=== PATIENT | female | born 1980 | race Caucasian/White ===

== ENCOUNTER 2018-08-20 20:57 | Emergency (ER) | END 2018-08-21 00:39 | disposition home or self-care (01) ==

== ENCOUNTER 2018-10-11 11:44 | Emergency (ER) | payer OTHER ==
[~2018-10-11] VITALS: Ht 162.6 cm; Wt 79.1 kg
[~2018-10-11 11:44] MED LIST: HC30CR25 TOP; METR70GE15 VAG; NAPR-985 PO
[2018-10-11 11:46] VITALS: Ht 162.6 cm; Wt 79.1 kg
--- NOTE | 2018-10-11 12:57 | ERD ---
ER Documentation Chief Complaint Chief Complaint vaginal pain , recently treated for yeast infection HPI 38 year old female, with no past medical history, who presents for a 1 month history of external vaginal pain and itching, worse yesterday and today, described as moderate, non-radiating, worse with sitting and walking, associated with mild white vaginal discharge and suprapubic pain. Patient reports that she has been seeing her PCP for this and has been treated with multiple antifungal creams, but without relief of her symptoms. Otherwise, patient denies any fev ers, chills, dysuria, hematuria, flank pain, nausea, or vomiting. ROS All systems reviewed and are negative except as per history of present illness. Medications Home Meds Active Scripts Nystatin-Triamcinolone* (Nystatin-Triamcinolone* Cream) 15 Gm Cream.gm., 1 APPLIC TOP BID for 7 Days, TUB Prov:MIRIAN SALEEM MD 10/11/18 Fluconazole* (Diflucan*) 150 Mg Tablet, 150 MG PO ONCE, #1 TAB Prov:MIRIAN SALEEM MD 10/11/18 Metronidazole (Metronidazole Gel) 0.75% - 70GM Gel.w.appl, 1 APPFUL VAGINAL QHS for 7 Days, #1 TUB Prov:MIRIAN SALEEM MD 10/11/18 Hydrocortisone* Topical (Hydrocortisone* Topical) 2.5%-28.3 Gm Cream..g., 1 APPLIC TOP BID for 5 Days, #1 TUB Prov:MIRIAN SALEEM MD 08/21/18 Metronidazole* (Metrogel* Vaginal) 0.75% -70 Gram Gel.w.appl, 1 APPFUL VAG HS for 7 Days, #1 TUB Prov:MIRIAN SALEEM MD 08/21/18 Naproxen* (Naprosyn*) 500 Mg Tablet, 500 MG PO BID PRN for PAIN AND/OR INFLAMMATION, #30 TAB take with food Prov:ENZO JEFF PA-C 05/04/16 Allergies Allergies: Coded Allergies: No Known Drug Allergies (Verified Allergy, Unknown, 05/04/16) PMhx/Soc History of Surgery: Yes (Thymomectomy,Sternotomy) Anesthesia Reaction: No Hx Neurological Disorder: Yes (Myasthenia Gravis (Resolved)) Hx Respiratory Disorders: No Hx Cardiac Disorders: No Hx Psychiatric Problems: No Hx Miscellaneous Medical Probl: Yes (Thymoma,UTIs) Hx Alcohol Use: No Hx Substance Use: No Hx Tobacco Use: No Smoking Status: Never smoker FmHx Family History: No diabetes Physical Exam Vitals Vital Signs Date Temp Pulse Resp B/P (MAP) Pulse Ox O2 O2 Flow FiO2 Time Delivery Rate 10/11/18 98.4 71 18 128/68 99 Room Air 14:45 (88) 10/11/18 98.2 79 16 135/72 97 11:46 (93) Physical Exam Const: No acute distress Head: Atraumatic Eyes: Normal Conjunctiva ENT: Normal External Ears, Nose and Mouth. Neck: Full range of motion. No meningismus. Resp: Clear to auscultation bilaterally Cardio: Regular rate and rhythm, no murmurs Abd: Soft, mild suprapubic tenderness to palpation, non distended. Normal bowel sounds : External genitalia with significant erythema, yellowish, malodorous vaginal discharge noticed. No cervical motion tenderness. Skin: No petechiae or rashes Back: No midline or flank tenderness Ext: No cyanosis, or edema Neur: Awake and alert Psych: Normal Mood and Affect Results 24 hrs Laboratory Tests Test 10/11/18 13:24 10/11/18 13:25 Bedside Urine pH (LAB) 5.5 Bedside Urine Protein (LAB) Negative Bedside Urine Glucose (UA) Negative Bedside Urine Ketones (LAB) Negative Bedside Urine Blood Trace-lysed Bedside Urine Nitrite (LAB) Negative Bedside Urine Leukocyte Esterase (L Trace POC Beta HCG, Qualitative NEGATIVE Name: TIP LANDA Age/Sex: 38/F Attend Dr: MIRIAN SALEEM Acct: [id number] MR# : [id number] : 1980 Location: [facility] Admit: 10/11/18 Specimen: [id number] Status: Complete Kwame: 10/11/18 Rcvd: 10/11/18 Source: VAGINAL DI Sp Descrip: --- Procedure Result Microbiology WET MOUNT Final WHITE BLOOD CELLS 2+ BACTERIA 2+ EPITHELIAL CELLS 1+ CLUE CELLS NO CLUE CELLS SEEN MOTILE TRICHOMONAS NO MOTILE TRICHOMONAS SEEN Procedures/MDM Vital signs stable. Differential diagnosis considered include UTI, cystitis, yeast infection, vaginitis, pelvic inflammatory disease, STI. Less likely malignancy or acute abdomen. During the ED course the patient remained stable, no new complaints. Results and clinical impression discussed with the patient who agrees with management. The patient is stable to be treated outpatient and will be discharged home; some side effects of prescribed medications (headache, rash, nausea, vomiting, diarrhea, drowsiness, habituation, bleeding, hypertension, interactions with other medications) were reviewed. Follow up with the primary care provider in the next 48h has been recommended. If symptoms persist, worsen or new symptoms develop, then patient should return to the ED immediately. Instructions explained and given directly by me to the patient with acknowledgment and demonstrated understanding. Disclaimer: Inadvertent spelling and grammatical errors are likely due to EHR/dictation software use and do not reflect on the overall quality of patient care. Also, please note that the electronic time recorded on this note does not necessarily reflect the actual time of the patient encounter. Departure Diagnosis: Primary Impression: Bacterial vaginosis Condition: Stable Additional Instructions: Thank you very much for allowing us to participate in your care. Your health and safety is our top priority at [facility]. Call your primary care doctor TOMORROW for an appointment during the next 2-4 days and bring all the information and medications prescribed. Have prescriptions filled and follow precisely the directions on the label. If the symptoms get worse and your provider is unavailable, return to the Emergency Department immediately. MIRIAN SALEEM MD Oct 11, 2018 12:57
[2018-10-11] MEDS ORDERED: FLUC150T PO (14:34)
[2018-10-11] MEDS ORDERED: METR70GE4 VAGINAL (14:34)
[2018-10-11] MEDS ORDERED: NYST15CR36 TOP (14:34)
[2018-10-11 14:45] VITALS: BP 128/68; PULSE 71; RESP 18
== END 2018-10-11 14:45 | disposition home or self-care (01) ==
LOC: FTE 11:44
DX: N76.0 Acute vaginitis (principal)
CPT/HCPCS: 81003; 81025; 87210; Z7502; 99284